=== PATIENT | female | born 1980 | race Caucasian/White ===

== ENCOUNTER 2025-08-22 03:01 | Emergency (ER) | payer MEDICAID ==
[~2025-08-22] VITALS: Ht 162.6 cm; Wt 56.7 kg
[2025-08-22 04:26] LABS: PLATELET COUNT (AUTO) 289 K/uL (150-450); RED BLOOD CELL COUNT(AUTO) 4.92 MIL/uL (4.0-5.2); RED CELL DISTRIBUTION WIDTH 13.5 % (11.5-15.0); WHITE BLOOD COUNT (AUTO) 6.1 K/uL (4.3-11.0)
[2025-08-22 04:32] LABS: CALCIUM, SERUM 8.9 mg/dL (8.5-10.1); CREATININE 0.8 mg/dL (0.6-1.3); SODIUM SERUM 139.0 mmol/L (136-145); UREA NITROGEN, BLOOD 10.0 mg/dL (7-18)
[2025-08-22 05:00] LABS: ASPARTATE AMINOTRANSFERASE 13.0 U/L (15-37); PREGNANCY TEST SERUM QUAN 18674.0 mIU/mL (0-6); TOTAL PROTEIN, SERUM 7.6 g/dL (6.4-8.2)
[2025-08-22] MEDS ORDERED: PYRI25TA4 PO (05:38)
[2025-08-22 06:27] LABS: APPEARANCE,URINE CLEAR (CLEAR); BLOOD, URINE 3+ Ery/uL (NEGATIVE); LEUKOCYTE ESTERASE ,URINE 2+ (NEGATIVE); NITRITE, URINE NEGATIVE (NEGATIVE); UGLUCOSE NEGATIVE (NEGATIVE)
[2025-08-22 06:44] LABS: ADD URINE CULTURE YES; SQUAMOUS EPITHELIAL CELL,UR Moderate /HPF (None Seen)
[2025-08-22] MEDS ORDERED: CEPH-570 PO (07:39)
[2025-08-22 07:50] VITALS: BP 130/85; TEMP 98.5; O2SAT 99
== END 2025-08-22 07:51 | disposition home or self-care (01) ==
LOC: ER 03:08
DX: O46.91 Antepartum hemorrhage, unspecified, first trimester (principal); N93.8 Other specified abnormal uterine and vaginal bleeding; R10.2 Pelvic and perineal pain; I51.9 Heart disease, unspecified; Z3A.00 Weeks of gestation of pregnancy not specified
CPT/HCPCS: 36415; 76805-TC; 80048-TC; 80076-TC; 81001; 84702-TC; 85025-TC; 87086-TC